=== PATIENT | female | born 1985 ===

== ENCOUNTER → 2021-12-25 | Outpatient (CLI) | payer OTHER ==
[2021-12-25 13:10] LABS: BASO % 1 % (0-3); EOS # 0.1 x10^3/uL (0.0-0.7); EOS % 2 % (0-3); HEMATOCRIT 35.7 % (36.0-47.0); LYMPH # 2.8 x10^3/uL (1.0-4.8); LYMPH % 31 % (24-48); MEAN CORPUSCULAR HEMOGLOBIN 31 pg (25-35); MEAN CORPUSCULAR HGB CONC 34 g/dL (31-37); MEAN CORPUSCULAR VOLUME 92 fL (79-100); MONO # 0.9 x10^3/uL (0.0-1.1); MONO % 10 % (0-9); NEUT # 5.2 x10^3uL (1.8-7.7); NEUT % 58 % (31-73); PLATELET COUNT 221 x10^3/uL (140-400); RED CELL DISTRIBUTION WIDTH 12.8 % (11.5-14.5)
[2021-12-26 10:09] LABS: RUBELLA IGG ANTIBODY 4.94 index (Immune >0.99)
== END ==
LOC: LAB 12:24
PROVIDERS: ATTEND Obstetrics & Gynecology
DX: Z32.01 Encounter for pregnancy test, result positive (principal)
CPT/HCPCS: 36415; 84144; 84702; 85025; 86592; 86703; 86762; 86850; 86900; 86901; 87340

== ENCOUNTER → 2022-01-01 | Outpatient (CLI) | payer OTHER ==
--- NOTE | 2022-01-01 15:32 | RAD ---
US OB <14 WKS +TV History: Reason: Lou OB; Dating; Trying to conceive / Spl. Instructions: / History: Comparison: None. Technique: Grayscale and color Doppler imaging of the pelvis was performed using transabdominal an tr ansvaginal technique. Findings: The uterus measures 8.5 x 5.0 x 3.7 cm. Single intrauterine gestational sac with mean sac diameter measures 0.93 cm. Regular appearance. The gestational age estimated 5 weeks 5 days. Yolk sac and pole are not identified. Estimated date of delivery based on ultrasound August 29, 2022. Right ovary measures 2.3 x 2.2 x 1.6 cm. Left ovary measures 2.6 x 2.8 x 1.8 cm. Dominant left ovarian follicle measures 1.6 cm, may represent corpus luteal cyst. Normal Doppler flow to the ovaries bilaterally. IMPRESSION: 1. Single intrauterine gestational sac with gestational age 5 weeks 5 days. pole is not identi fied, may relate to early . Recommend short-term ultrasound follow-up and serial beta-hCG te sting. Electronically signed by: Travis Sagastume DO (01/01/2022 3:30 PM) [id number]
== END ==
LOC: US 08:33
PROVIDERS: ATTEND Obstetrics & Gynecology
DX: N97.9 Female infertility, unspecified (principal)
CPT/HCPCS: 76801; 76817